=== PATIENT | female | born 1995 | race American Indian/Alaskan Native ===

== ENCOUNTER 2022-04-15 09:28 | Emergency (ER) | payer MEDICAID ==
--- NOTE | 2022-04-15 09:41 | Emergency Department Report ---
ED Female HPI - General Chief complaint: Vaginal Bleeding Stated complaint: 14WKS PREG BLEEDING Time Seen by Provider: 04/15/22 09:40 Source: patient Mode of arrival: Ambulatory Limitations: No Limitations - History of Present Illness Initial comments: Patient is a 27-year-old female that comes to the ER with dysuria since last night. She is 14 weeks . Her last menstrual cycle 318. She endorses suprapubic cramping. No vaginal discharge or bleeding. She is ambulatory, nontoxic [id number] on arrival MD Complaint: dysuria -: Gradual Severity scale (0 -10): 1 Quality: cramping Consistency: intermittent Improves with: none Worsens with: none Are you Now?: Yes Associated Symptoms: denies other symptoms - Related Data Sexually active: Yes Previous Rx's Medication Instructions Recorded Last Taken Type Amoxicillin [Trimox CAP] 500 mg PO BID #20 capsule 04/15/22 Unknown Rx Allergies Allergy/AdvReac Type Severity Reaction Status Date / Time No Known Allergies Allergy Verified 04/15/22 12:19 ED Review of Systems ROS: Stated complaint: 14WKS PREG BLEEDING Other details as noted in HPI Comment: All other systems reviewed and negative ED Past Medical Hx - Past Medical History Previous Medical History?: No - Surgical History Past Surgical History?: Yes Additional Surgical History: - Family History Family history: no significant - Social History Smoking Status: Never Smoker Substance Use Type: None - Medications Home Medications: Home Medications Medication Instructions Recorded Confirmed Last Taken Type Amoxicillin [Trimox CAP] 500 mg PO BID #20 capsule 04/15/22 Unknown Rx ED Physical Exam - General Limitations: No Limitations General appearance: alert, in no apparent distress - Head Head exam: Present: atraumatic, normocephalic - Eye Eye exam: Present: normal appearance - ENT ENT exam: Present: mucous membranes moist - Neck Neck exam: Present: normal inspection - Respiratory Respiratory exam: Present: normal lung sounds bilaterally. Absent: respiratory distress - Cardiovascular Cardiovascular Exam: Present: regular rate, normal rhythm. Absent: systolic murmur, diastolic murmur, rubs, gallop - GI/Abdominal GI/Abdominal exam: Present: soft, normal bowel sounds - Extremities Exam Extremities exam: Present: normal inspection - Back Exam Back exam: Present: normal inspection - Neurological Exam Neurological exam: Present: alert, oriented X3 - Psychiatric Psychiatric exam: Present: normal affect, normal mood - Skin Skin exam: Present: warm, dry, intact, normal color. Absent: rash ED Course Vital Signs 04/15/22 04/15/22 09:35 13:17 Temperature 98.6 F Pulse Rate 85 85 Respiratory 16 18 Rate Blood Pressure 114/68 [Left] O2 Sat by Pulse 96 99 Oximetry ED Medical Decision Making - Lab Data Result diagrams: 04/15/22 09:51 04/15/22 09:51 - Radiology Data Radiology results: report reviewed, image reviewed see report - Medical Decision Making Labs 04/15/22 04/15/22 04/15/22 09:51 09:51 09:51 WBC 11.4 H RBC 5.45 H Hgb 11.5 Hct 37.8 MCV 69 L MCH 21 L MCHC 30 RDW 13.7 Plt Count 316 Sodium 134 L Potassium 4.1 Chloride 103.2 Carbon Dioxide 20 L Anion Gap 15 BUN 6 L Creatinine 0.5 L Estimated GFR > 60 BUN/Creatinine Ratio 12 Glucose 82 Calcium 9.1 HCG, Quant 11128 H Urine Bilirubin Blood Type Ord [facility] Gestat Weeks 04/15/22 04/15/22 09:51 12:31 WBC RBC Hgb Hct MCV MCH MCHC RDW Plt Count Sodium Potassium Chloride Carbon Dioxide Anion Gap BUN Creatinine Estimated GFR BUN/Creatinine Ratio Glucose Calcium HCG, Quant Urine Bilirubin Neg Blood Type A POSITIVE Ord [facility] Rh pos Vital Signs 04/15/22 04/15/22 09:35 13:17 Temperature 98.6 F Pulse Rate 85 85 Respiratory 16 18 Rate Blood Pressure 114/68 [Left] O2 Sat by Pulse 96 99 Oximetry rh pos quant noted Ultrasound noted UA noted. A gram of Rocephin IM. Patient discharged on amoxicillin twice daily for 10 days. Culture and sensitivity pending please call her if we need to change the antibiotic. On discharge patient is ambulatory, not ill nontoxic. She is taking p.o. Patient being discharged home with discharge plan of care including diet, activity medications and follow-up. She verbalizes understanding of plan of care. - Differential Diagnosis ro ab/ectopic/uti Critical care attestation.: If time is entered above; I have spent that time in minutes in the direct care of this critically ill patient, excluding procedure time. ED Disposition Clinical Impression: UTI (urinary tract infection) Qualifiers: Urinary tract infection type: site unspecified Hematuria presence: with hematuria Qualified Code(s): N39.0 - Urinary tract infection, site not specified Disposition: 01 HOME / SELF CARE / HOMELESS Is pt being admited?: No Does the pt Need Aspirin: No Condition: Stable Instructions: Urinary Tract Infection, Adult, [id number] Additional Instructions: stay well hydrated with water follow up with obgyn in 48 hours for recheck tylenol may be used for pain pelvic rest until seen by obgyn diet and activity as tolerated daily vitamin Take antibiotic as prescribed today until it is gone. Let your [employer] know that you were treated for UTI. He will we need to recheck your urine. Prescriptions: Amoxicillin [Trimox CAP] 500 mg PO BID #20 capsule Referrals: BERNARD XIAO MD [Staff Physician] - 3-5 Days Forms: Work/School Release Form(ED) Time of Disposition: 13:32
[2022-04-15 10:43] LABS: Mean Corpuscular HGB Conc 30 % (30-34); Platelet Count 316 K/mm3 (140-440); Red Blood Count 5.45 M/mm3 (3.65-5.03); Red Cell Distribution Width 13.7 % (13.2-15.2)
[2022-04-15 10:49] LABS: Hematocrit 37.8 % (30.3-42.9); Hemoglobin 11.5 gm/dl (10.1-14.3); Mean Corpuscular Volume 69 fl (79-97)
[2022-04-15 10:54] LABS: Blood Urea Nitrogen 6 mg/dL (7-17); Calcium 9.1 mg/dL (8.4-10.2); Hemolysis Index 9
[2022-04-15 11:26] LABS: BUN/Creatinine Ratio 12
--- NOTE | 2022-04-15 11:48 | Ultrasound Report ---
ULTRASOUND OBSTETRIC INDICATION / CLINICAL INFORMATION: vag bleed in preg. Clinical Gestational Age (GA) in weeks, days: 13, 4 TECHNIQUE: Transabdominal. COMPARISON: None available. FINDINGS: Single intrauterine . Biparietal Diameter = 2.5 cm = 14, 3 weeks, days Head Circumference = 9.3 cm = 14, 2 weeks, days Abdominal Circumference = 7.1 cm = 13, 5 weeks, days Femur Length = 1.2 cm = 13, 4 weeks, days Average Ultrasound Age (AUA) = 14, 0 weeks, days Heart Rate: 156 beats per minute. Estimated Weight in grams (if calculated): Not calculated Estimated Weight Growth Percentile (if calculated): Not calculated Position: transverse. Cervix: closed. Length in cm (if measured): 3.4 Placenta: Fundal and free of the os. Amniotic Fluid Volume: normal Amniotic Fluid Index (NATALYA) in cm (if calculated): Not calculated. IMPRESSION: 1. Single, living intrauterine with estimated sonographic age of 14, 0 weeks, days. 2. No significant sonographic abnormality. Signer Name: Florentino Munoz DO Signed: 04/15/2022 10:40 AM Workstation Name: [id number]
[2022-04-15 13:17] VITALS: BP 114/68
[2022-04-15 13:30] LABS: Bilirubin,Urine NEG (Negative); Blood,Urine NEG (Negative); Color,Urine Amber (Yellow)
[2022-04-15 13:40] LABS: Bacteria,Urine 3+ /HPF (Negative); Mucus,Urine 3+ /HPF
[2022-04-15] MEDS ORDERED: LIDOCAINE-MPF (1%) 10 MG/1 ML VIAL 5 ML INFILTRATI ONE (13:44)
== END 2022-04-15 17:21 | disposition home or self-care (01) ==
LOC: ED 09:28
DX: O23.42 Unspecified infection of urinary tract in pregnancy, second trimester (principal); N39.0 Urinary tract infection, site not specified; Z3A.14 14 weeks gestation of pregnancy; Z98.890 Other specified postprocedural states
CPT/HCPCS: 36415; 76805; 80048; 81001; 84702; 85027; 86900; 86901; 87086; 96372; 99284; J0696; J3490

== ENCOUNTER 2022-05-13 18:00 | Emergency (ER) | payer MEDICAID ==
[2022-05-13 18:16] VITALS: BP 144/78
== END 2022-05-14 07:00 | disposition left against medical advice (07) ==
LOC: ED 18:00
DX: O26.892 Other specified pregnancy related conditions, second trimester (principal); H92.09 Otalgia, unspecified ear; Z53.21 Procedure and treatment not carried out due to patient leaving prior to being seen by health care provider; Z3A.18 18 weeks gestation of pregnancy